=== PATIENT | male | born 1970 | race Caucasian/White ===

== ENCOUNTER 2017-01-14 16:33 | Emergency (ER) | payer OTHER ==
--- NOTE | 2017-01-14 16:58 | EDPHY ---
H & P Stated Complaint: Fever, SANCHEZ, nausea for over aweek. Time Seen by Provider: 01/14/17 16:45 HPI/ROS: CHIEF COMPLAINT: Fever, headache, nausea HISTORY OF PRESENT ILLNESS: The patient presents to emergency department for a 11 day history of fever, headache and nausea. The patient denies cough, sore throat, vomiting or diarrhea. The patient was [facility] and referred to the emergency department for further workup. The patient reportedly is concerned that he may be converting to HIV serial positivity. Blood testing was done today which is currently pending. The patient denies recent procedures. The patient denies medication changes. He takes medication for high blood pressure. The patient has no complaints of arthralgias. He denies numbness or weakness. His headache is moderate in nature and associated with nausea. He reports the headache is bifrontal in location. REVIEW OF SYSTEMS: A comprehensive 10 point review of systems is otherwise negative aside from elements mentioned in the history of present illness. Source: Patient Exam Limitations: No limitations - Personal History Current Tetanus/Diphtheria Vaccine: Unsure Current Tetanus Diphtheria and Acellular Pertussis (TDAP): Unsure - Medical/Surgical History Hx Asthma: No Hx Chronic Respiratory Disease: No Hx Diabetes: No Hx Cardiac Disease: No Hx Renal Disease: No Hx Cirrhosis: No Hx Alcoholism: No Hx HIV/AIDS: No Hx Splenectomy or Spleen Trauma: No Other PMH: depression. gall bladder. radical hysterectomy. transgender. L ankle surgey - Social History Smoking Status: Never smoked - Physical Exam Exam: General Appearance: Alert, no distress Eyes: Pupils equal and round no pallor or injection ENT, Mouth: Mucous membranes moist Respiratory: There are no retractions, lungs are clear to auscultation Cardiovascular: Regular rate and rhythm Gastrointestinal: Abdomen is soft and nontender, no masses, bowel sounds normal Neurological: A&O, normal motor function, normal sensory exam, normal cranial nerves Skin: Warm and dry, no rashes Musculoskeletal: Neck is supple nontender Extremities: symmetrical, full range of motion, no meningeal symptoms Constitutional: Initial Vital Signs Temperature (C) 37.2 C 01/14/17 16:37 Heart Rate 97 01/14/17 16:37 Respiratory Rate 18 01/14/17 16:37 Blood Pressure 135/83 H 01/14/17 16:37 O2 Sat (%) 94 01/14/17 16:37 O2 Delivery Mode Room Air Allergies/Adverse Reactions: SOME TAPES Allergy (Uncoded 07/30/11 17:20) Home Medications: Medication Instructions Recorded Aspirin 81mg (OTC) 07/12/15 LaMICtal 07/12/15 Lexapro 07/12/15 Lisinopril 07/12/15 Seroquel 07/12/15 traZODONE 07/12/15 Amlodipine Besylate 01/14/17 Hydrocodone/APAP 5/325 [Gwynn 1 - 2 each PO Q6 PRN #20 tab 01/14/17 5/325] Ondansetron Odt [Zofran Odt] 4 mg PO Q4PRN PRN #20 tab 01/14/17 Medical Decision Making - Diagnostics Imaging: Imaging Impressions Head CT 01/14/17 17:40 Impression: Normal CT of the head without and with contrast. Results called and discussed with Dr. Hero Hutton, on January 14, 2017 at 1826 hours. ED Course/Re-evaluation: The patient presents to the ED with a 11 day history of a febrile illness. The patient's only symptom is a mild frontal headache. The patient has nausea. He is noted to have no meningeal symptoms. His vital signs are stable. He is afebrile in the ED. Laboratory studies have been ordered which are unrevealing at this point time. The patient can follow on the lab testing at this point time with his infectious disease provider. I do not feel the patient requires lumbar puncture to exclude bacterial meningitis. The patient is comfortable with this plan. He will be discharged home with a prescription for Gwynn and Zofran. Differential Diagnosis: Differential diagnosis considered includes viral syndrome, CMV infection, meningitis, SEWER REPAIRER abscess - Data Points Laboratory Results: Laboratory Results 01/14/17 16:55 01/14/17 16:55 01/14/17 01/14/17 01/14/17 16:55 16:55 16:55 WBC RBC Hgb Hct Cancelled MCV MCH MCHC RDW Plt Count MPV Neut % (Auto) Lymph % (Auto) Evans % (Auto) Eos % (Auto) Baso % (Auto) Nucleat RBC Rel Count Absolute Neuts (auto) Absolute Lymphs (auto) Absolute Monos (auto) Absolute Eos (auto) Absolute Basos (auto) Absolute Nucleated RBC Immature Gran % Seg Neutrophils % Band Neutrophils % Lymphocytes % Monocytes % Eosinophils % Metamyelocytes % Immature Gran # Absolute Seg Neuts Absolute Band Neuts Absolute Lymphocytes Absolute Monocytes Absolute Eosinophils Absolute Metamyelocyte RBC/WBC/PLT Morphology Atypical Lymphocytes Platelet Estimate ESR Cancelled Sodium 138 mEq/L mEq/L (134-144) Potassium 3.9 mEq/L mEq/L (3.5-5.2) Chloride 100 mEq/L mEq/L (97-110) Carbon Dioxide 28 mEq/l mEq/l (22-31) Anion Gap 10 mEq/L mEq/L (8-16) BUN 12 mg/dL mg/dL (7-23) Creatinine 1.0 mg/dL mg/dL (0.7-1.3) Estimated GFR > 60 Glucose 93 mg/dL mg/dL (70-100) Calcium 8.7 mg/dL mg/dL (8.5-10.4) Total Bilirubin 1.4 mg/dL mg/dL (0.1-1.4) AST 65 IU/L H IU/L (17-59) ALT 88 IU/L H IU/L (21-72) Alkaline Phosphatase 92 IU/L IU/L (38-126) Total Protein 6.7 g/dL g/dL (6.3-8.2) Albumin 3.7 g/dL g/dL (3.5-5.0) CMV IgG Ab Pending CMV IgM Ab Pending EBV Capsid Ag IgG Ab Pending EBV Capsid Ag IgM Ab Pending EBV Nuclear Antigen Ab Pending EBV Interpretation Pending 01/14/17 16:55 WBC 6.22 10^3/uL 10^3/uL (3.80-9.50) RBC 3.92 10^6/uL L 10^6/uL (4.40-6.38) Hgb 12.3 g/dL L g/dL (13.7-17.5) Hct 37.9 % L % (40.0-51.0) MCV 96.7 fL fL (81.5-99.8) MCH 31.4 pg pg (27.9-34.1) MCHC 32.5 g/dL g/dL (32.4-36.7) RDW 16.7 % H % (11.5-15.2) Plt Count 176 10^3/uL 10^3/uL (150-400) MPV 9.5 fL fL (8.7-11.7) Neut % (Auto) 48.1 % % (39.3-74.2) Lymph % (Auto) 43.4 % % (15.0-45.0) Evans % (Auto) 4.8 % % (4.5-13.0) Eos % (Auto) 1.6 % % (0.6-7.6) Baso % (Auto) 1.1 % % (0.3-1.7) Nucleat RBC Rel Count 0.0 % % (0.0-0.2) Absolute Neuts (auto) 2.99 10^3/uL 10^3/uL (1.70-6.50) Absolute Lymphs (auto) 2.70 10^3/uL 10^3/uL (1.00-3.00) Absolute Monos (auto) 0.30 10^3/uL 10^3/uL (0.30-0.80) Absolute Eos (auto) 0.10 10^3/uL 10^3/uL (0.03-0.40) Absolute Basos (auto) 0.07 10^3/uL 10^3/uL (0.02-0.10) Absolute Nucleated RBC 0.00 10^3/uL 10^3/uL (0-0.01) Immature Gran % 1.0 % % (0.0-1.1) Seg Neutrophils % 37 % % Band Neutrophils % 10 % % Lymphocytes % 45 % % Monocytes % 5 % % Eosinophils % 2 % % Metamyelocytes % 1 % % Immature Gran # 0.06 10^3/uL 10^3/uL (0.00-0.10) Absolute Seg Neuts 2.30 10^/uL 10^/uL (1.70-6.50) Absolute Band Neuts 0.62 10^3/uL 10^3/uL (0.00-0.70) Absolute Lymphocytes 2.80 10^3/uL 10^3/uL (1.00-3.00) Absolute Monocytes 0.31 10^3/uL 10^3/uL (0.30-0.80) Absolute Eosinophils 0.12 10^3/uL 10^3/uL (0.03-0.40) Absolute Metamyelocyte 0.06 10^3/mL H 10^3/mL (0.00-0.00) RBC/WBC/PLT Morphology NORMAL (NORMAL) Atypical Lymphocytes 1+ H Platelet Estimate ADEQUATE (ADEQ) ESR 16 MM/HR H MM/HR (0-15) Sodium Potassium Chloride Carbon Dioxide Anion Gap BUN Creatinine Estimated GFR Glucose Calcium Total Bilirubin AST ALT Alkaline Phosphatase Total Protein Albumin CMV IgG Ab CMV IgM Ab EBV Capsid Ag IgG Ab EBV Capsid Ag IgM Ab EBV Nuclear Antigen Ab EBV Interpretation Departure - Departure Disposition: Home, Routine, Self-Care Clinical Impression: Headache, Febrile illness Condition: Good Instructions: General Headache (ED) Additional Instructions: 1. Take Ibuprofen or Motrin 600 mg by mouth three times a day. 2. Zofran as needed for nausea. 3. Gwynn as needed for severe pain. Referrals: Breonna Puckett NP [Certified Nurse Practioner] - As per Instructions
[2017-01-14 17:13] LABS: ABSOLUTE IMMATURE GRANULOCYTES 0.06 10^3/uL (0.00-0.10); ADD DIFF? NO; ADD MORPH? NO; ADD SCAN? YES; FRAGMENT RBC FLAG 0 (0-99); HEMATOCRIT 37.9 % (40.0-51.0); HEMOGLOBIN 12.3 g/dL (13.7-17.5); LEFT SHIFT FLG 10 (0-99); LIPEMIA HEMOLYSIS FLAG 80 (0-99); MEAN CELL HEMOGLOBIN 31.4 pg (27.9-34.1); MEAN CELL HEMOGLOBIN CONCENTR. 32.5 g/dL (32.4-36.7); MEAN CELL VOLUME 96.7 fL (81.5-99.8); MEAN PLATELET VOLUME 9.5 fL (8.7-11.7); PLATELET CLUMPS FLAG 20 (0-99); PLATELET COUNT 176 10^3/uL (150-400); RED BLOOD CELL COUNT 3.92 10^6/uL (4.40-6.38); RED CELL DISTRIBUTION WIDTH 16.7 % (11.5-15.2)
[2017-01-14] MEDS ORDERED: ONDANSETRON 0.8 MG/ML UDSYR ONE (17:28)
[2017-01-14] MEDS ORDERED: ONDANSETRON 4 MG/2 ML VIAL ONE (17:30)
[2017-01-14 17:33] LABS: ALANINE AMINOTRANSFERASE 88 IU/L (21-72); ALBUMIN 3.7 g/dL (3.5-5.0); ALKALINE PHOSPHATASE 92 IU/L (38-126); ANION GAP 10 mEq/L (8-16); ASPARTATE AMINOTRANSFERASE 65 IU/L (17-59); BILIRUBIN,TOTAL 1.4 mg/dL (0.1-1.4); CALCIUM 8.7 mg/dL (8.5-10.4); CARBON DIOXIDE 28 mEq/l (22-31); CHLORIDE 100 mEq/L (97-110); GLOMERULAR FILTRATION RATE > 60; GLUCOSE 93 mg/dL (70-100); POTASSIUM 3.9 mEq/L (3.5-5.2); SODIUM 138 mEq/L (134-144); TOTAL PROTEIN 6.7 g/dL (6.3-8.2)
[2017-01-14 17:38] LABS: ATYPICAL LYMPHOCYTE FLAG 200 (0-99)
[2017-01-14] MEDS ORDERED: IOPAMIDOL (ISOVUE-300) 100 ML BTL IV ONE (17:48)
[2017-01-14 18:10] LABS: SEDIMENTATION RATE 16 MM/HR (0-15)
[2017-01-14] MEDS ORDERED: PROMETHAZINE HCL 25 MG TAB ONE (18:22)
[2017-01-14 18:36] LABS: SCAN POSITIVE
[2017-01-14 18:40] LABS: PLATELET ESTIMATE ADEQUATE (ADEQ)
[2017-01-14 19:19] VITALS: BP 130/78; PULSE 70; RESP 14; TEMP 98.4; O2SAT 94
[2017-01-15 13:04] LABS: ANTI EBNA Positive (Negative); ANTI VCA/IgG Positive (Negative); ANTI VCA/IgM Negative (Negative)
== END 2017-01-14 19:24 | disposition home or self-care (01) ==
DX: R50.9 Fever, unspecified (principal); R51 Headache; Z79.82 Long term (current) use of aspirin
CPT/HCPCS: 86644-90; 86645-90; 86664-90; 86665-90; J2405; Q9967